=== PATIENT | female | born 1930 | race Caucasian/White ===

== ENCOUNTER 2016-02-14 10:21 | Outpatient (CLI) | payer MEDICARE, OTHER | END 2016-02-14 10:22 | disposition home or self-care (01) | DX: Z12.31 Encounter for screening mammogram for malignant neoplasm of breast (principal); Z80.3 Family history of malignant neoplasm of breast ==

== ENCOUNTER 2016-08-13 08:00 | Outpatient (CLI) | payer MEDICARE, OTHER | END 2016-08-13 08:01 | LOC: LAB.R 08:00 | PROVIDERS: ATTEND Physician Assistant Medical | DX: R10.31 Right lower quadrant pain (principal) | CPT/HCPCS: 87086 ==

== ENCOUNTER 2017-03-09 12:26 | Outpatient (CLI) | payer MEDICARE, OTHER ==
[2017-03-09 19:19] LABS: BASOPHILS % (AUTO) 0.5 %; EOSINOPHILS # (AUTO) 0.1 10^3/uL (0.0-0.7); EOSINOPHILS % (AUTO) 2.1 %; HGB - HEMOGLOBIN 12.5 g/dL (12.0-16.0); LYMPHOCYTES # (AUTO) 1.3 10^3/uL (1.5-3.5); LYMPHOCYTES % (AUTO) 24.9 %; MEAN CORPUSCULAR HEMOGLOBIN 29.2 pg (27.0-31.0); MEAN CORPUSCULAR HGB CONC 32.7 g/dL (32.0-36.0); MEAN CORPUSCULAR VOLUME 89.5 fL (81.0-99.0); MEAN PLATELET VOLUME 8.7 fL (7.9-10.8); MONOCYTES # (AUTO) 0.4 10^3/uL (0.0-1.0); MONOCYTES % (AUTO) 7.3 %; NEUTROPHILS # (AUTO) 3.5 10^3/uL (1.5-6.6); NEUTROPHILS % (AUTO) 65.2 %; PLT - PLATELET COUNT 241 10^3/uL (130-450); RED BLOOD COUNT 4.29 10^6/uL (4.20-5.40); RED CELL DISTRIBUTION WIDTH 13.1 % (12.0-15.0); WHITE BLOOD COUNT 5.4 x10^3/uL (4.8-10.8)
[2017-03-09 19:50] LABS: ALBUMIN 4.1 g/dL (3.2-5.5); ALBUMIN/GLOBULIN RATIO 1.5 (1.0-2.2); ALKALINE PHOSPHATASE 50 IU/L (42-121); ALT ALANINE AMINOTRANSFERASE 13 IU/L (10-60); AST ASPARTATE AMINOTRANSFERASE 20 IU/L (10-42); BILIRUBIN,TOTAL 0.5 mg/dL (0.2-1.0); BUN - BLOOD UREA NITROGEN 16 mg/dL (6-20); CALCIUM 10.2 mg/dL (8.5-10.3); CARBON DIOXIDE - CO2 26 mmol/L (21-32); CHLORIDE 103 mmol/L (101-111); CREATININE 0.7 mg/dL (0.4-1.0); GFR - MDRD 79 (>89); GLUCOSE 83 mg/dL (70-100); SODIUM 138 mmol/L (135-145); TOTAL PROTEIN 6.8 g/dL (6.7-8.2)
[2017-03-09 19:58] LABS: THYROID STIMULATING HORMONE 2.93 uIU/mL (0.34-5.60)
== END 2017-03-09 12:27 | disposition home or self-care (01) ==
LOC: LAB.WCP 12:26
PROVIDERS: ATTEND Physician Assistant Medical
DX: E21.0 Primary hyperparathyroidism (principal); R20.9 Unspecified disturbances of skin sensation; J30.9 Allergic rhinitis, unspecified
CPT/HCPCS: 36415; 80053; 83970; 84443; 85025

== ENCOUNTER 2017-03-15 08:44 | Outpatient (CLI) | payer MEDICARE, OTHER ==
[2017-03-15] MEDS ORDERED: GADOBUTROL 7.5 MMOL/7.5 ML VIAL ONE (08:45)
[2017-03-15] MEDS ORDERED: GADOBUTROL 7.5 MMOL/7.5 ML VIAL IVP ONE (09:24)
--- NOTE | 2017-03-15 10:52 | MRI Report ---
EXAM: MRI BRAIN WITHOUT AND WITH CONTRAST EXAM DATE: 03/15/2017 09:43 AM. CLINICAL HISTORY: Paresthesia. COMPARISON: None. TECHNIQUE: Multiplanar, multisequence T1-weighted and fluid-sensitive MR sequences of the brain were performed. Sequences optimized for White matter evaluation. Other: None. IV Contrast: Without and wit h 5.5 mL Gadavist. FINDINGS: Brain Volume: Normal for age. Parenchyma: No restricted diffusion to suggest acute or recent ischemic infarct. No evidence for intr acranial enhancing or space-occupying mass. No evidence for major dural venous sinus thrombus. No mid line shift or abnormal subdural fluid collection. Mild to moderate nonspecific multifocal patchy and nodular abnormal white matter T2 hyperintensity th at is especially prominent and confluent around the ventricles. There is also mild patchy abnormal T2 hyperintensity in the cerebellum and brainstem. No abnormal associated white matter enhancement. Ventricles/Cisterns: No hydrocephalus. No abnormal extra-axial fluid collection or hemorrhage. Sinuses: Left maxillary retention cyst. Minimal paranasal sinus mucosal thickening. Mild patchy nonsp ecific right mastoid fluid opacity. Bones: No focal pathologic appearing marrow signal changes in the skull or clivus. Other: The major arterial skull base flow voids are present. IMPRESSION: 1. No acute abnormality or enhancing mass. 2. Moderate nonspecific cerebral white matter disease, the usual gamut of White matter conditions may be considered including chronic microangiopathy. 3. Minimal mucosal thickening and patchy right mastoid nonspecific fluid opacity. [facility] Referring Provider Line: [phone] SITE ID: [id number]
== END 2017-03-15 08:45 | disposition home or self-care (01) ==
LOC: DI 08:44
PROVIDERS: ATTEND Physician Assistant Medical
DX: R20.9 Unspecified disturbances of skin sensation (principal); R90.82 White matter disease, unspecified
CPT/HCPCS: 70553; A9585

== ENCOUNTER 2017-04-08 10:33 | Outpatient (CLI) | payer MEDICARE, OTHER ==
--- NOTE | 2017-04-09 12:58 | Mammography Report ---
DIGITAL SCREENING MAMMOGRAM: 04/08/2017 CLINICAL INDICATION: An 86-year-old, for screening. COMPARISON: 02/2016, 01/2015, 12/2013, 11/2012, 11/2011, 11/2010, 11/2009. TECHNIQUE: Routine CC and MLO projections were obtained of the breasts. FINDINGS: The breasts again demonstrate scattered fibroglandular densities bilaterally. Coarse and punctate, typically benign calcifications are present. No suspicious masses, clustered microcalcifications, or regions of architectural distortion are identified. IMPRESSION: BENIGN FINDINGS. RECOMMENDATION: ROUTINE ANNUAL SCREENING UNLESS OTHERWISE CLINICALLY INDICATED. BIRADS CATEGORY 2-BENIGN FINDINGS. STANDARD QUALIFYING STATEMENTS: 1. This examination was reviewed with the aid of Computer-Aided Detection (CAD). 2. A negative or benign imaging report should not delay biopsy if clinically suspicious findings are present. Consider surgical consultation if warranted. More than 5% of cancers are not identified by imaging. 3. Dense breasts may obscure an underlying neoplasm. TD: 04/09/2017 12:57
== END 2017-04-08 10:34 | disposition home or self-care (01) ==
LOC: DI.N 10:33
PROVIDERS: ATTEND Physician Assistant Medical
DX: Z12.31 Encounter for screening mammogram for malignant neoplasm of breast (principal)
CPT/HCPCS: 77067

== ENCOUNTER 2017-09-14 13:05 | Outpatient (CLI) | payer MEDICARE, OTHER ==
--- NOTE | 2017-09-15 08:12 | DEXA Report ---
Procedure Date: 09/14/2017 Accession Number: [id number] / [id number] Procedure: DEX - Dexa Spine and/or Hip CPT Code: FULL RESULT: EXAM: Dexa Spine and/or Hip DATE: 09/14/2017 1:44 PM CLINICAL HISTORY: BONE DISEASE TECHNIQUE: Dual energy x-ray absorptiometry (DXA) was performed on a [employer]. Regions measured are the AP Spine, femoral neck, and if needed forearm. COMPARISON: None. In accordance with the International Society for Clinical Densitometry (ISCD) guidelines, data from previous exams may be reanalyzed using current recommendations and techniques. This is done to allow a more accurate basis for comparison with the current study. FINDINGS: The data for the lumbar spine is as follows: BMD (g/cm/cm) T-SCORE Z-SCORE REGION L1 0.827 -2.5 -0.2 L2 0.908 -2.4 -0.1 L3 0.926 -2.3 0.0 L4 0.929 -2.3 0.1 TOTAL 0.905 -2.3 0.0 NOTE: All evaluable vertebrae are used for classification The data for the hip is as follows: BMD (g/cm/cm) T-SCORE Z-SCORE REGION Neck 0.729 -2.2 0.5 TOTAL 0.798 -1.7 1.0 NOTE: The femoral neck or total proximal femur, whichever is lowest, is used for classification. DXA RESULTS SUMMARY: Spine SCAN DATE AGE BMD CHANGE VS CHANGE VS PREVIOUS PREVIOUS % 09[age]14[birth year]2017 [age] 0[age]905 0.028* 3.2* 09[birth year]18[birth year]2015 [age] 0[age]877 * Denotes significant change at the 95% confidence level. Denotes dissimilar scan types or analysis methods. DXA RESULTS SUMMARY: Hip SCAN DATE AGE BMD CHANGE VS CHANGE VS PREVIOUS PREVIOUS % 09[birth year]14[birth year]2017 [age] 0.798 0.039* 5.1* 09[birth year]18/2015 84.8 0.759 * Denotes significant change at the 95% confidence level. Denotes dissimilar scan types or analysis methods. IMPRESSION: THE WHO CLASSIFICATION BASED ON THE INTERNATIONAL REFERENCE STANDARD IS OSTEOPENIA. THE FRACTURE RISK IS INCREASED. RECOMMENDATION: Patients with diagnosis of osteoporosis or osteopenia should have regular bone mineral density assessment. For those eligible for Medicare, routine testing is allowed once every 2 years. Testing frequency can be increased for patients who have rapidly progressing disease or for those who are receiving medical therapy to restore bone mass. COMMENT: World Health Organization (WHO) definitions for osteoporosis and osteopenia: NORMAL BMD: T-score at -1.0 or higher, fracture risk is low OSTEOPENIA BMD: T-score between -1.0 and -2.5, fracture risk is increased. OSTEOPOROSIS BMD: T-score at -2.5 or lower, fracture risk is high. National Osteoporosis Foundation recommends: 1. Obtain adequate dietary calcium (at least 1200 mg per day) and vitamin D (400-800 international units per day). 2. Participate, as appropriate, in regular weightbearing and muscle-strengthening exercise. 3. Avoid tobacco use and reduce alcohol and caffeine intake. 4. For more detailed information see the website at www.NOF.org.
== END 2017-09-14 13:06 | disposition home or self-care (01) ==
LOC: DI 13:05
PROVIDERS: ATTEND Physician Assistant Medical
DX: M85.89 Other specified disorders of bone density and structure, multiple sites (principal)
CPT/HCPCS: 77080

== ENCOUNTER 2018-06-09 08:11 | Day surgery (SDC) | payer MEDICARE, OTHER ==
[~2018-06-09 08:11] MED LIST: BRIMONIDINE 0.2% OPHTH DROPS 5 ML ONE; BSS/LIDOCAINE/EPINEPHRINE 1 ML SYRINGE ONE; CYCLOPENTOLATE 1% OPHTH DROPS 2 ML ONE; CYCLOPENTOLATE 1% OPHTH DROPS 2 ML RIGHTEYE ONE; EPINEPHrine 1 MG/ML AMP ONE; KETOROLAC 0.45% OPHTH DROPS ONE; KETOROLAC 0.45% OPHTH DROPS RIGHTEYE ONE; PHENYLEPHRINE 2.5% OPHTH 2 ML DROPS ONE; PHENYLEPHRINE 2.5% OPHTH 2 ML DROPS RIGHTEYE ONE; PROPARACAINE 0.5% OPHTH DROPS 15 ML ONE; PROPARACAINE 0.5% OPHTH DROPS 15 ML RIGHTEYE ONE; TIMOLOL 0.5% OPHTH DROPS ONE; TRIAMCIN/MOXIFLOX OPHTHALMIC 0.6 ML VIAL IO ONE; VANCOMYCIN OPHTHALMI 8MG/0.8ML 8 MG/0.8 ML SYRINGE IO ONE
[2018-06-09] MEDS ORDERED: LACTATED RINGERS 500 ML IV ONE (08:23)
--- NOTE | 2018-06-09 08:26 | ANESTHESIA ---
Pre-Anesthesia VS, & Labs - Diagnosis R senile combined cataract - Procedure R extraction cataract with IOL Vital Signs: Last Vital Signs Temp 36.1 C L 06/09/18 08:27 Pulse 57 L 06/09/18 08:27 Resp 18 06/09/18 08:27 BP 156/70 H 06/09/18 08:27 Pulse Ox 99 06/09/18 08:27 Height 4 ft 11.25 in Body Mass Index 21.7 - NPO >8 hours - Is Patient ?: No Home Medications and Allergies Alendronate Sodium [Fosamax] 70 mg PO ONCE 11/26/14 Aspirin [Aspir 81] 81 mg PO DAILY 11/26/14 Cholecalciferol (Vitamin D3) [Vitamin D-3] 2,000 unit PO DAILY 11/26/14 Levetiracetam [Keppra] 500 mg PO BID 11/26/14 Vit C/E/Zn/Coppr/Lutein/Zeaxan [Preservision Areds 2 Softgel] 1 cap PO DAILY 11/26/14 Allergies/Adverse Reactions: Allergies Allergy/AdvReac Type Severity Reaction Status Date / Time levofloxacin [From Levaquin] AdvReac Intermediate Nausea Verified 11/26/14 15:25 NSAIDS (Non-Steroidal AdvReac Intermediate Nausea Verified 11/26/14 15:25 Anti-Inflamma phenazopyridine HCl * AdvReac Intermediate Nausea Verified 11/26/14 15:25 [From Pyridium] Anes History & Medical History - Anesthetic History Anesthesia Complications: reports: No previous complications Family history of Anesthesia Complications: Denies Family history of Malignant Hyperthermia: Denies - Medical History Cardiovascular: reports: None Pulmonary: reports: None Gastrointestinal: reports: Colon polyps, Other Urinary: reports: None Musculoskeletal: reports: Osteoarthritis, Osteoporosis Endocrine/Autoimmune: reports: Other Skin: reports: Other - Surgical History General: Colonoscopy Eyes Ears Nose Throat (EENT): Tonsil/Adenoidectomy Gynecologic: Hysterectomy Orthopedic: Hip replacement Exam General: Alert, Oriented x3, Cooperative Dental: WNL Mouth Openin Fingerbreadth Mallampati classification: II Thyromental Distance: 4-6 cm Respiratory: Lungs clear, Normal breath sounds, No respiratory distress Cardiovascular: Regular rate Neurological: Normal speech Mental/Cognitive Status: Alert/Oriented X3, Normal for patient Cognitive Status: Within normal limits Plan Anesthesia Type: MAC Consent for Procedure(s) Verified and Reviewed: Yes Code Status: Attempt Resuscitation ASA classification: 2-Mild systemic disease Is this case an emergency?: No
[2018-06-09] MEDS ORDERED: BRIMONIDINE 0.2% OPHTH DROPS 5 ML OPTH ONE (09:27)
[2018-06-09] MEDS ORDERED: CHONDR SULF/HYALURONATE SYRINGE IO ONE (09:28)
[2018-06-09] MEDS ORDERED: BSS/LIDOCAINE/EPINEPHRINE 1 ML SYRINGE IO ONE (09:28)
[2018-06-09] MEDS ORDERED: EPINEPHrine 1 MG/ML AMP IVP ONE (09:28)
[2018-06-09] MEDS ORDERED: TIMOLOL 0.5% OPHTH DROPS OPTH ONE (09:28)
[2018-06-09] MEDS ORDERED: TRIAMCIN/MOXIFLOX OPHTHALMIC 0.6 ML VIAL IO ONE (09:28)
[2018-06-09] MEDS ORDERED: VANCOMYCIN OPHTHALMI 8MG/0.8ML 8 MG/0.8 ML SYRINGE IO ONE (09:29)
[2018-06-09] MEDS ORDERED: MIDAZOLAM 2 MG/2 ML VIAL IVP ONE (09:29)
[2018-06-09 10:13] VITALS: BP 127/62
--- NOTE | 2018-06-09 11:55 | OPERATIVE REPORT ---
DATE OF SERVICE: 06/09/2018 Physician: Ankit Garner MD PREOPERATIVE DIAGNOSIS: Visually significant cataract, right eye. This was her first cataract surge ry. POSTOPERATIVE DIAGNOSIS: Visually significant cataract, right eye. This was her first cataract surg sil. DESCRIPTION OF PROCEDURE: Phacoemulsification with posterior chamber intraocular lens implant, right eye. SURGEON: Ankit Garner MD ANESTHESIA: Monitored anesthesia care. COMPLICATIONS: None. OPERATIVE INDICATIONS: This is an 87-year-old woman with progressive vision loss in the right eye du e to 2+ nuclear sclerotic and 3+ cortical cataract. Best corrected visual acuity was 20/40, with gla re to 20/630. Indications for surgery are overall decrease in vision, difficulty driving at night be cause of headlights from other vehicles and/or street lights, and difficulty tracking a golf ball. S he was consented at length concerning risks and benefits of cataract surgery, after which she express ed a desire to proceed with surgery. OPERATIVE PROCEDURE: The patient was taken into OR #3 and placed under monitored anesthesia care. A surgical timeout was conducted confirming the correct patient, correct procedure, and correct surgic al site. She was given topical anesthesia, then prepped and draped in the usual sterile fashion. Th e eye was entered at the 12 and 9 o'clock positions. Intracameral Shugarcaine was injected into the anterior chamber, followed by Viscoat. A continuous-tear curvilinear capsulorrhexis was performed. The nucleus was hydrodissected and phacoemulsified. The cortex was evacuated using automated infusio n and aspiration. Provisc was injected in the capsular bag, and a 19.5 diopter intraocular lens inse rted in the bag. Approximately 0.8 mL of a mixture of triamcinolone, moxifloxacin and vancomycin was injected subconjunctivally in the superior quadrant for infection and inflammation prophylaxis. I a nd A was used to evacuate the viscoelastic materials. The eye was inflated to physiologic pressure u sing balanced salt solution and found to be watertight. The patient was taken from the operating jonatan m in good condition and postoperative instructions. TD: 06/09/2018 09:49
== END 2018-06-09 08:12 | disposition home or self-care (01) ==
LOC: SDS 08:11
PROVIDERS: ATTEND Ophthalmology
PROC: 08RJ3JZ Replacement of Right Lens with Synthetic Substitute, Percutaneous Approach (ICD-10-PCS; principal; 2018-06-09 09:30)
DX: H25.811 Combined forms of age-related cataract, right eye (principal); M81.0 Age-related osteoporosis without current pathological fracture; M19.90 Unspecified osteoarthritis, unspecified site; Z96.649 Presence of unspecified artificial hip joint; Z79.82 Long term (current) use of aspirin
CPT/HCPCS: 66984; A9270; J3490; V2632

== ENCOUNTER 2018-06-16 17:00 | Outpatient (CLI) | payer MEDICARE, OTHER | END 2018-06-16 23:59 | disposition home or self-care (01) | LOC: LAB.R 17:00 | PROVIDERS: ATTEND Physician Assistant Medical | DX: R39.15 Urgency of urination (principal) | CPT/HCPCS: 87086 ==

== ENCOUNTER 2018-06-17 09:00 | Outpatient (CLI) | payer MEDICARE, OTHER ==
--- NOTE | 2018-06-20 08:44 | Mammography Report ---
Reason: SCREENING MAMMO Procedure Date: 06/17/2018 Accession Number: [id number] / [id number] Procedure: MGN - Screening Mammo Dig Bilat CPT Code: FULL RESULT: EXAM: Screening Mammo Dig Bilat DATE: 06/17/2018 9:22 AM CLINICAL HISTORY: Routine screening. No reported personal history of breast cancer. Family history breast cancer in sister at age 70 and daughter at age 50. TECHNIQUE: (B) - Bilateral CC and MLO views were obtained. COMPARISON: 04/08/2017 through 12/12/2013 PARENCHYMAL PATTERN: (A) - The breasts demonstrate scattered fibroglandular densities bilaterally. FINDINGS: Bilateral breasts There are no suspicious masses, calcifications, or areas of distortion. IMPRESSION: Negative examination. BI-RADS category 1. RECOMMENDATION: (ANNUAL) - Recommend routine annual screening mammography. BI-RADS CATEGORY: (1) - Negative. STANDARD QUALIFYING STATEMENTS: 1. This examination was not reviewed with the aid of Computer-Aided Detection (CAD). 2. A negative or benign imaging report should not preclude biopsy if clinically suspicious findings are present. 3. Dense breasts may obscure an underlying neoplasm. 4. This examination was reviewed without the aid of 3D breast imaging (tomosynthesis).
== END 2018-06-17 09:01 | disposition home or self-care (01) ==
LOC: DI.N 09:00
DX: Z12.31 Encounter for screening mammogram for malignant neoplasm of breast (principal); Z80.3 Family history of malignant neoplasm of breast
CPT/HCPCS: 77067

== ENCOUNTER 2018-06-20 08:00 | Outpatient (CLI) | payer MEDICARE, OTHER ==
[2018-06-20 19:35] LABS: BILIRUBIN,URINE NEGATIVE (NEGATIVE); GLUCOSE, URINE (UA) NEGATIVE (NEGATIVE); KETONES,URINE (UA) NEGATIVE (NEGATIVE); LEUKOCYTE ESTERASE, URINE NEGATIVE (NEGATIVE); NITRITE,URINE NEGATIVE (NEGATIVE); OCCULT BLOOD,URINE NEGATIVE (NEGATIVE); PH,URINE 6.5 PH (5.0-7.5); PROTEIN,URINE NEGATIVE (NEGATIVE); UROBILINOGEN,URINE 0.2 (NORMAL) E.U./dL (NORMAL)
[2018-06-20 19:37] LABS: CLARITY,URINE CLEAR (CLEAR)
== END 2018-06-20 23:59 | disposition home or self-care (01) ==
LOC: LAB.R 08:00
PROVIDERS: ATTEND Physician Assistant
DX: R39.15 Urgency of urination (principal)
CPT/HCPCS: 81001; 81003; 87086

== ENCOUNTER 2018-07-14 07:08 | Day surgery (SDC) | payer MEDICARE, OTHER ==
[~2018-07-14 07:08] MED LIST changes: -BRIMONIDINE 0.2% OPHTH DROPS 5 ML ONE; -BSS/LIDOCAINE/EPINEPHRINE 1 ML SYRINGE ONE; -CYCLOPENTOLATE 1% OPHTH DROPS 2 ML RIGHTEYE ONE; -EPINEPHrine 1 MG/ML AMP ONE; -KETOROLAC 0.45% OPHTH DROPS RIGHTEYE ONE; -PHENYLEPHRINE 2.5% OPHTH 2 ML DROPS RIGHTEYE ONE; -PROPARACAINE 0.5% OPHTH DROPS 15 ML RIGHTEYE ONE; -TIMOLOL 0.5% OPHTH DROPS ONE; -TRIAMCIN/MOXIFLOX OPHTHALMIC 0.6 ML VIAL IO ONE; -VANCOMYCIN OPHTHALMI 8MG/0.8ML 8 MG/0.8 ML SYRINGE IO ONE
[2018-07-14] MEDS ORDERED: BRIMONIDINE 0.2% OPHTH DROPS 5 ML ONE (07:12)
[2018-07-14] MEDS ORDERED: TRIAMCIN/MOXIFLOX OPHTHALMIC 0.6 ML VIAL IO ONE ×2 (07:12→08:34)
[2018-07-14] MEDS ORDERED: TIMOLOL 0.5% OPHTH DROPS ONE (07:12)
[2018-07-14] MEDS ORDERED: BSS/LIDOCAINE/EPINEPHRINE 1 ML SYRINGE ONE (07:13)
[2018-07-14] MEDS ORDERED: VANCOMYCIN OPHTHALMI 8MG/0.8ML 8 MG/0.8 ML SYRINGE IO ONE ×2 (07:13→08:34)
[2018-07-14] MEDS ORDERED: KETOROLAC 0.45% OPHTH DROPS LEFTEYE ONE (07:35)
[2018-07-14] MEDS ORDERED: CYCLOPENTOLATE 1% OPHTH DROPS 2 ML LEFTEYE ONE (07:35)
[2018-07-14] MEDS ORDERED: PHENYLEPHRINE 2.5% OPHTH 2 ML DROPS LEFTEYE ONE (07:35)
[2018-07-14] MEDS ORDERED: PROPARACAINE 0.5% OPHTH DROPS 15 ML LEFTEYE ONE (07:35)
[2018-07-14] MEDS ORDERED: LACTATED RINGERS 500 ML IV ONE (07:39)
--- NOTE | 2018-07-14 07:43 | ANESTHESIA ---
Pre-Anesthesia VS, & Labs - Diagnosis L senile combined cataract - Procedure L extraction cataract with IOL Vital Signs: Temp Pulse Resp BP Pulse Ox 36.3 C L 56 L 16 144/77 H 99 07/14/18 07:17 07/14/18 07:17 07/14/18 07:17 07/14/18 07:17 07/14/18 07:17 Height 4 ft 11 in Weight (kg) 53.2 kg Body Mass Index 21.7 - NPO >8 hours - Is Patient ?: No Home Medications and Allergies Aspirin [Aspir 81] 81 mg PO DAILY 11/26/14 Cholecalciferol (Vitamin D3) [Vitamin D-3] 2,000 unit PO DAILY 11/26/14 Levetiracetam [Keppra] 500 mg PO BID 11/26/14 Vit C/E/Zn/Coppr/Lutein/Zeaxan [Preservision Areds 2 Softgel] 1 cap PO DAILY 11/26/14 Allergies/Adverse Reactions: Allergies Allergy/AdvReac Type Severity Reaction Status Date / Time levofloxacin [From Levaquin] AdvReac Intermediate Nausea Verified 11/26/14 15:25 NSAIDS (Non-Steroidal AdvReac Intermediate Nausea Verified 11/26/14 15:25 Anti-Inflamma phenazopyridine HCl * AdvReac Intermediate Nausea Verified 11/26/14 15:25 [From Pyridium] Anes History & Medical History - Anesthetic History Anesthesia Complications: reports: No previous complications Family history of Anesthesia Complications: Denies Family history of Malignant Hyperthermia: Denies - Medical History Cardiovascular: reports: None Pulmonary: reports: None Gastrointestinal: reports: Colon polyps, Other Urinary: reports: None Musculoskeletal: reports: Osteoarthritis, Osteoporosis Endocrine/Autoimmune: reports: Other Skin: reports: Other - Surgical History General: Colonoscopy Eyes Ears Nose Throat (EENT): Cataracts, Tonsil/Adenoidectomy Gynecologic: Hysterectomy Orthopedic: Hip replacement Exam General: Alert, Oriented x3, Cooperative Dental: WNL Mouth Openin Fingerbreadth Neck Mobility: Normal Mallampati classification: II Thyromental Distance: 4-6 cm Respiratory: Lungs clear, Normal breath sounds Cardiovascular: Regular rate Neurological: Normal speech Mental/Cognitive Status: Alert/Oriented X3, Normal for patient Cognitive Status: Within normal limits Plan Anesthesia Type: MAC Consent for Procedure(s) Verified and Reviewed: Yes Code Status: Attempt Resuscitation ASA classification: 2-Mild systemic disease Is this case an emergency?: No
[2018-07-14] MEDS ORDERED: CHONDR SULF/HYALURONATE SYRINGE IO ONE (08:33)
[2018-07-14] MEDS ORDERED: BRIMONIDINE 0.2% OPHTH DROPS 5 ML OPTH ONE (08:33)
[2018-07-14] MEDS ORDERED: EPINEPHrine 1 MG/ML AMP IVP ONE (08:33)
[2018-07-14] MEDS ORDERED: TIMOLOL 0.5% OPHTH DROPS OPTH ONE (08:33)
[2018-07-14] MEDS ORDERED: BSS/LIDOCAINE/EPINEPHRINE 1 ML SYRINGE IO ONE (08:33)
[2018-07-14] MEDS ORDERED: MIDAZOLAM 2 MG/2 ML VIAL IVP ONE (08:43)
[2018-07-14 09:13] VITALS: BP 113/50
--- NOTE | 2018-07-14 10:35 | OPERATIVE REPORT ---
DATE OF SERVICE: 07/14/2018 Physician: Ankit Garner MD PREOPERATIVE DIAGNOSIS: Visually significant cataract, left eye. Cataract surgery was performed on the right eye on 06/09/2018. POSTOPERATIVE DIAGNOSIS: Visually significant cataract, left eye. Cataract surgery was performed on the right eye on 06/09/2018. PROCEDURE: Phacoemulsification with posterior chamber intraocular lens implant, left eye. SURGEON: Ankit Garner MD ANESTHESIA: Monitored anesthesia care. COMPLICATIONS: None. OPERATIVE INDICATIONS: This is an 87-year-old woman with progressive vision loss in the left eye due to 2+ nuclear sclerotic and 3+ cortical cataract. Best corrected visual acuity was 20/40 with glare to 20/400 in the left eye. Indications for surgery are overall decrease in vision and difficulty dr iving in low light or at night, difficulty driving at night because of headlights from other vehicles , and difficulty tracking a golf ball. She was consented at length concerning risks and benefits of cataract surgery, after which she expressed a desire to proceed with surgery. OPERATIVE PROCEDURE: The patient was taken into OR #3 and placed under monitored anesthesia care. A surgical timeout was conducted confirming the correct patient, correct procedure, and correct surgic al site. She was given topical anesthesia, and then prepped and draped in the usual sterile fashion. The eye was entered at the 6 and 3 o'clock positions. Intracameral Shugarcaine was injected into t he anterior chamber, followed by Viscoat. A continuous-tear curvilinear capsulorrhexis was performed . The nucleus was hydrodissected and phacoemulsified. The cortex was evacuated using automated infu francisco and aspiration. Provisc was injected into the capsular bag, and a 20.5 diopter intraocular lens inserted in the bag. Approximately 0.8 mL of a mixture of triamcinolone, moxifloxacin and vancomyci n was injected subconjunctivally in the superior quadrant for infection and inflammation prophylaxis. I and A was used to evacuate the viscoelastic material. The eye was inflated to physiologic pressu re using balanced salt solution and found to be watertight. The patient was taken from the operating room in good condition and given postoperative instructions. TD: 07/14/2018 08:54
== END 2018-07-14 07:09 | disposition home or self-care (01) ==
LOC: SDS 07:08
PROVIDERS: ATTEND Ophthalmology
PROC: 08RK3JZ Replacement of Left Lens with Synthetic Substitute, Percutaneous Approach (ICD-10-PCS; principal; 2018-07-14 10:30)
DX: H25.812 Combined forms of age-related cataract, left eye (principal); H35.3190 Nonexudative age-related macular degeneration, unspecified eye, stage unspecified; H35.373 Puckering of macula, bilateral; H35.363 Drusen (degenerative) of macula, bilateral; M19.90 Unspecified osteoarthritis, unspecified site; M81.0 Age-related osteoporosis without current pathological fracture; Z79.82 Long term (current) use of aspirin; Z96.641 Presence of right artificial hip joint
CPT/HCPCS: 66984; A9270; J3490; V2632

== ENCOUNTER 2018-08-15 13:33 | Outpatient (CLI) | payer MEDICARE, OTHER ==
[2018-08-15 18:46] LABS: ALBUMIN 4.1 g/dL (3.2-5.5); ALBUMIN/GLOBULIN RATIO 1.6 (1.0-2.2); ALKALINE PHOSPHATASE 61 IU/L (42-121); ALT ALANINE AMINOTRANSFERASE 14 IU/L (10-60); AST ASPARTATE AMINOTRANSFERASE 18 IU/L (10-42); BILIRUBIN,TOTAL 0.5 mg/dL (0.2-1.0); BUN - BLOOD UREA NITROGEN 23 mg/dL (6-20); CALCIUM 10.5 mg/dL (8.5-10.3); CARBON DIOXIDE - CO2 23 mmol/L (21-32); CHLORIDE 107 mmol/L (101-111); CHOL/HDL RATIO 3.4 (<4.4); CHOLESTEROL 216 mg/dL; CREATININE 0.8 mg/dL (0.4-1.0); GFR - MDRD 68 (>89); GLUCOSE 96 mg/dL (70-100); HDL CHOLESTEROL 63 mg/dL; LDL CHOLESTEROL,CALCULATED 127 mg/dL; SODIUM 141 mmol/L (135-145); TOTAL PROTEIN 6.7 g/dL (6.7-8.2); VLDL CHOLESTEROL 26 mg/dL
[2018-08-15 18:48] LABS: BASOPHILS % (AUTO) 0.9 %; EOSINOPHILS # (AUTO) 0.2 10^3/uL (0.0-0.7); EOSINOPHILS % (AUTO) 3.6 %; HGB - HEMOGLOBIN 12.1 g/dL (12.0-16.0); LYMPHOCYTES # (AUTO) 1.3 10^3/uL (1.5-3.5); LYMPHOCYTES % (AUTO) 27.4 %; MEAN CORPUSCULAR HEMOGLOBIN 29.2 pg (27.0-31.0); MEAN CORPUSCULAR HGB CONC 31.8 g/dL (32.0-36.0); MEAN CORPUSCULAR VOLUME 91.6 fL (81.0-99.0); MEAN PLATELET VOLUME 10.9 fL (7.9-10.8); MONOCYTES # (AUTO) 0.3 10^3/uL (0.0-1.0); MONOCYTES % (AUTO) 7.1 %; NEUTROPHILS # (AUTO) 2.9 10^3/uL (1.5-6.6); PLT - PLATELET COUNT 262 10^3/uL (130-450); RED BLOOD COUNT 4.15 10^6/uL (4.20-5.40); WHITE BLOOD COUNT 4.7 x10^3/uL (4.8-10.8)
[2018-08-15 18:53] LABS: THYROID STIMULATING HORMONE 1.53 uIU/mL (0.34-5.60)
== END 2018-08-15 23:59 | disposition home or self-care (01) ==
LOC: LAB.WCP 13:33
PROVIDERS: ATTEND Physician Assistant Medical
DX: R20.9 Unspecified disturbances of skin sensation (principal); M89.9 Disorder of bone, unspecified; R42 Dizziness and giddiness; E21.0 Primary hyperparathyroidism; M81.0 Age-related osteoporosis without current pathological fracture; R10.31 Right lower quadrant pain
CPT/HCPCS: 36415; 80053; 80061; 83721; 83970; 84443; 85025

== ENCOUNTER 2018-11-18 04:23 | Outpatient (CLI) | payer MEDICARE, OTHER | END 2018-11-18 04:24 | disposition critical access hospital (66) | LOC: EMS 04:23 | PROVIDERS: ATTEND Surgery | DX: R07.9 Chest pain, unspecified (principal) | CPT/HCPCS: A0425; A0427 ==

== ENCOUNTER 2018-11-18 05:32 | Emergency (ER) | payer MEDICARE, OTHER ==
[2018-11-18 05:53] LABS: BASOPHILS % (AUTO) 0.5 %; EOSINOPHILS # (AUTO) 0.1 10^3/uL (0.0-0.7); EOSINOPHILS % (AUTO) 1.7 %; HGB - HEMOGLOBIN 12.6 g/dL (12.0-16.0); LYMPHOCYTES # (AUTO) 1.3 10^3/uL (1.5-3.5); LYMPHOCYTES % (AUTO) 16.3 %; MEAN CORPUSCULAR HEMOGLOBIN 29.3 pg (27.0-31.0); MEAN CORPUSCULAR HGB CONC 31.9 g/dL (32.0-36.0); MEAN CORPUSCULAR VOLUME 91.9 fL (81.0-99.0); MONOCYTES # (AUTO) 0.8 10^3/uL (0.0-1.0); MONOCYTES % (AUTO) 10.4 %; NEUTROPHILS # (AUTO) 5.4 10^3/uL (1.5-6.6); NEUTROPHILS % (AUTO) 70.6 %; PLT - PLATELET COUNT 232 10^3/uL (130-450); RED CELL DISTRIBUTION WIDTH 12.4 % (12.0-15.0); WHITE BLOOD COUNT 7.7 x10^3/uL (4.8-10.8)
--- NOTE | 2018-11-18 05:53 | ED Physician Documentation ---
<Lacy Conley - Last Filed: 11/18/18 06:56> PD HPI CHEST PAIN - Stated complaint Stated Complaint: CP - Chief complaint Chief Complaint: Cardiac - History obtained from History obtained from: Patient - History of Present Illness Timing - onset: Last night Timing - onset during: Rest Timing - details: Gradual onset Pain level max: 8 Pain level now: 1 Quality: Dull Location: Substernal, Left chest Radiation: No: Jaw, Neck, Back, Abdominal, Left upper extremity, Right upper extremity, Other Improved by: Nitro, ASA Worsened by: Inspiration Associated symptoms: No: Shortness of air, Diaphoresis, Nausea, Vomiting, Feeling faint / dizzy, Palpitations, Cough Similar symptoms before: Has not had sx before Recently seen: Not recently seen - Additional information Additional information: This is an 88-year-old woman who lives alone complaints that she had chest pain last night before she went to bed at around 10:00. She was able to get to sleep but awoke at 3:30 in the morning to go to the bathroom and could not get back to sleep because of the dull pain in her substernal and left chest that was worse with deep breathing. She rated the pain at an 8 out of 10 and when she called 911 they told her to take 4 baby aspirin which she did in the ambulance gave her 3 sublingual nitros in route her pain is now down to 1 out of 10. She did not experience any dizziness, sweating, shortness of breath or palpitations with this. No nausea or vomiting. Has had no dysuria or peripheral edema. Denies history of heart disease, diabetes or DVT. She has had a partial seizure in the past and has been on Keppra since then. Review of Systems Constitutional: denies: Fever Eyes: reports: Other (Patient does wear glasses) Throat: denies: Sore throat Cardiac: reports: Chest pain / pressure. denies: Palpitations, Pedal edema Respiratory: denies: Dyspnea, Cough GI: denies: Nausea, Vomiting : denies: Dysuria Skin: denies: Rash Neurologic: denies: Generalized weakness, Focal weakness Endocrine: reports: Other (She is not diabetic) PD PAST MEDICAL HISTORY - Past Medical History Past Medical History: Yes Cardiovascular: None Respiratory: None Neuro: Seizure disorder Endocrine/Autoimmune: Other GI: Colon polyps, Other : None HEENT: Other Psych: None Musculoskeletal: Osteoarthritis, Osteoporosis Derm: Other - Past Surgical History Past Surgical History: Yes General: Colonoscopy Ortho: Hip replacement /MEDICAL SCRIBE: Hysterectomy HEENT: Cataracts, Tonsil/Adenoidectomy - Present Medications Home Medications: Ambulatory Orders Medication Instructions Recorded Confirmed Aspirin [Aspir 81] 81 mg PO DAILY 11/26/14 11/18/18 Cholecalciferol (Vitamin D3) 2,000 unit PO DAILY 11/26/14 11/18/18 [Vitamin D-3] Levetiracetam [Keppra] 500 mg PO BID 11/26/14 11/18/18 Vit C/E/Zn/Coppr/Lutein/Zeaxan 1 cap PO DAILY 11/26/14 11/18/18 [Preservision Areds 2 Softgel] - Allergies Allergies/Adverse Reactions: Allergies Allergy/AdvReac Type Severity Reaction Status Date / Time levofloxacin [From Levaquin] AdvReac Intermediate Nausea Verified 11/18/18 05:51 NSAIDS (Non-Steroidal AdvReac Intermediate Nausea Verified 11/18/18 05:51 Anti-Inflamma phenazopyridine HCl * AdvReac Intermediate Nausea Verified 11/18/18 05:51 [From Pyridium] - Social History Does the pt smoke?: No Smoking Status: Never smoker Does the pt drink ETOH?: Yes Does the pt have substance abuse?: No - Immunizations Immunizations are current?: Yes - POLST Patient has POLST: No PD ED PE NORMAL - Vitals Vital signs reviewed: Yes - General General: Alert and oriented X 3, No acute distress, Well developed/nourished - HEENT HEENT: Atraumatic, PERRL, Moist mucous membranes - Neck Neck: Supple, no meningeal sign, No adenopathy, Thyroid normal - Cardiac Cardiac: RRR, No murmur, No rub, Strong equal pulses - Respiratory Respiratory: No respiratory distress, Clear bilaterally - Abdomen Abdomen: Normal bowel sounds, Soft, Non tender, Non distended - Derm Derm: Normal color, Warm and dry, No rash - Extremities Extremities: No edema - Neuro Neuro: Alert and oriented X 3, assorter 2-12 intact, No motor deficit, No sensory deficit, Normal speech - Psych Psych: Normal mood, Normal affect Results - EKG (time done) 0540 Rate: Rate (enter#) (75) Rhythm: NSR Intervals: Normal MA, Other (Narrow QRS) Ischemia: Normal ST segments, Other (Diffusely flat T waves) - Rads (name of study) CXR Radiology: EMP read contemporaneously, See rad report (Neg acute) PD MEDICAL DECISION MAKING - ED course Complexity details: reviewed results, re-evaluated patient, d/w patient ED course: Patient had only very minimal discomfort by the time she arrived by ambulance. Her initial troponin is normal. Chest x-ray is clear and her EKG does not show acute ischemia. Plan to observe and recheck troponin in 3 hours. She was allowed to have something to eat. On reevaluation she said that the pain was essentially gone. Care turned over to Dr Awan at 0700. Departure - Departure Disposition: 01 Home, Self Care Clinical Impression: Atypical chest pain Condition: Stable Instructions: ED Chest Pain Atypical Unkn Cause Follow-Up: Amna Elena PA-C [Primary Care Provider] - Within 1 week Comments: Your labs, ekgs, chest xrays and heart enzymes today were all normal. There is no evidence that you are having a heart attack. If your symptoms recur or are severe however you should return to the ED. Otherwise please follow up with your PCP to recheck your symptoms and potentiall y to schedule a stress test to test your heart while exercising. <Adelina Awan - Last Filed: 11/18/18 09:35> Results - Vitals Vitals: Vital Signs - 24 hr 11/18/18 11/18/18 11/18/18 05:33 05:43 05:48 Temperature 36.8 C Heart Rate 75 70 Respiratory 18 26 H Rate Blood Pressure 120/71 117/69 Blood Pressure 120/71 [Left] O2 Saturation 99 97 11/18/18 11/18/18 11/18/18 06:18 07:17 09:00 Temperature Heart Rate 69 69 72 Respiratory 19 18 12 Rate Blood Pressure 106/63 106/69 128/63 Blood Pressure [Left] O2 Saturation 98 99 97 Oxygen O2 Source Room air - EKG (time done) 08:39 Rate: Rate (enter#) (62) Rhythm: NSR [place]: Normal Intervals: Normal MA, QRS normal QRS: Normal Ischemia: Normal ST segments Other comments: Other comments (no STEMI) Compare to prior EKG: Unchanged from prior EKG - Labs Labs: Laboratory Tests 11/18/18 11/18/18 11/18/18 05:42 05:42 05:42 WBC 7.7 RBC 4.30 Hgb 12.6 Hct 39.5 MCV 91.9 MCH 29.3 MCHC 31.9 L RDW 12.4 Plt Count 232 MPV 10.0 Neut # (Auto) 5.4 Lymph # (Auto) 1.3 L [place] # (Auto) 0.8 Eos # (Auto) 0.1 Baso # (Auto) 0.0 Absolute Nucleated RBC 0.00 Nucleated RBC % 0.0 Sodium 140 Potassium 3.8 Chloride 104 Carbon Dioxide 25 Anion Gap 11.0 BUN 20 Creatinine 0.8 Estimated GFR (MDRD) 68 L Glucose 97 Calcium 9.9 Total Bilirubin 0.7 AST 18 ALT 13 Alkaline Phosphatase 57 Troponin I High Sens 4.1 Total Protein 6.5 L Albumin 3.8 Globulin 2.7 Albumin/Globulin Ratio 1.4 Lipase 49 11/18/18 08:42 WBC RBC Hgb Hct MCV MCH MCHC RDW Plt Count MPV Neut # (Auto) Lymph # (Auto) [place] # (Auto) Eos # (Auto) Baso # (Auto) Absolute Nucleated RBC Nucleated RBC % Sodium Potassium Chloride Carbon Dioxide Anion Gap BUN Creatinine Estimated GFR (MDRD) Glucose Calcium Total Bilirubin AST ALT Alkaline Phosphatase Troponin I High Sens 4.1 Total Protein Albumin Globulin Albumin/Globulin Ratio Lipase PD MEDICAL DECISION MAKING - ED course ED course: I received patient signout from Dr. Goncalves, he repeat EKG shows normal sinus rhythm and no STEMI or ischemic changes. Her repeat troponin is normal. I discussed with Miss Hooper the results of her labs and imaging and ekgs. I also instructed her to return if worsening chest pain or sob develop. She agrees to followup as an outpt with her PCP. Departure - Departure Record reviewed to determine appropriate education?: Yes
[2018-11-18 06:03] LABS: ALBUMIN 3.8 g/dL (3.2-5.5); ALBUMIN/GLOBULIN RATIO 1.4 (1.0-2.2); BILIRUBIN,TOTAL 0.7 mg/dL (0.2-1.0); CALCIUM 9.9 mg/dL (8.5-10.3); CREATININE 0.8 mg/dL (0.4-1.0); TOTAL PROTEIN 6.5 g/dL (6.7-8.2)
--- NOTE | 2018-11-18 06:19 | XRAY Report ---
Reason: Chest Pain Procedure Date: 11/18/2018 Accession Number: [id number] / [id number] Procedure: XR - Chest 1 View X-Ray CPT Code: 16804 FULL RESULT: EXAM: CHEST RADIOGRAPHY EXAM DATE: 11/18/2018 06:00 AM. CLINICAL HISTORY: Chest pain. COMPARISON: None. TECHNIQUE: 1 view. FINDINGS: Lungs/Pleura: No focal opacities evident. No pulmonary edema. No pleural effusion. No pneumothorax. Mediastinum: Upper normal cardiac silhouette size. No mediastinal widening. Other: Osseous structures are mildly osteopenic with degenerative changes evident. Osseous structures are grossly intact. IMPRESSION: No evidence of acute cardiopulmonary process. RADIA
[2018-11-18 09:25] VITALS: BP 128/63
== END 2018-11-18 09:42 | disposition home or self-care (01) ==
LOC: EDUNIT# → ED 05:32
DX: R07.89 Other chest pain (principal); Z79.82 Long term (current) use of aspirin; G40.909 Epilepsy, unspecified, not intractable, without status epilepticus
CPT/HCPCS: 36415; 71045; 80053; 83690; 84484; 85025; 93005; 99284

== ENCOUNTER 2018-12-05 10:07 | Outpatient (CLI) | payer MEDICARE, OTHER | END 2018-12-05 10:08 | disposition home or self-care (01) | LOC: DI 10:07 | PROVIDERS: ATTEND Physician Assistant Medical | DX: R07.9 Chest pain, unspecified (principal); I08.1 Rheumatic disorders of both mitral and tricuspid valves | CPT/HCPCS: 93306 ==

== ENCOUNTER 2019-04-20 13:50 | Outpatient (CLI) | payer MEDICARE, OTHER | END 2019-04-20 23:59 | disposition home or self-care (01) | LOC: LAB.R 13:50 | PROVIDERS: ATTEND Physician Assistant Medical | DX: J06.9 Acute upper respiratory infection, unspecified (principal) | CPT/HCPCS: 87275; 87276 ==

== ENCOUNTER 2019-06-19 08:00 | Outpatient (CLI) | payer MEDICARE, OTHER | END 2019-06-19 23:59 | disposition home or self-care (01) | LOC: LAB.R 08:00 | PROVIDERS: ATTEND Physician Assistant Medical | DX: R30.0 Dysuria (principal) | CPT/HCPCS: 87086; 87181 ==

== ENCOUNTER 2019-06-29 10:14 | Outpatient (CLI) | payer MEDICARE, OTHER | END 2019-06-29 10:15 | disposition home or self-care (01) | LOC: DI 10:14 | PROVIDERS: ATTEND Internal Medicine Cardiovascular Disease | DX: I34.0 Nonrheumatic mitral (valve) insufficiency (principal); I51.7 Cardiomegaly; Z95.0 Presence of cardiac pacemaker | CPT/HCPCS: 93306 ==

== ENCOUNTER 2019-07-26 07:00 | Outpatient (CLI) | payer MEDICARE, OTHER | END 2019-07-26 23:59 | disposition home or self-care (01) | LOC: LAB.R 07:00 | PROVIDERS: ATTEND Physician Assistant Medical | DX: N39.0 Urinary tract infection, site not specified (principal) | CPT/HCPCS: 87086 ==

== ENCOUNTER 2019-10-20 10:11 | Emergency (ER) | payer MEDICARE, OTHER ==
[2019-10-20 10:34] LABS: BASOPHILS % (AUTO) 0.5 %; EOSINOPHILS # (AUTO) 0.1 10^3/uL (0.0-0.7); EOSINOPHILS % (AUTO) 1.6 %; HGB - HEMOGLOBIN 12.5 g/dL (12.0-16.0); LYMPHOCYTES % (AUTO) 15.5 %; MEAN CORPUSCULAR HEMOGLOBIN 30.5 pg (27.0-31.0); MEAN CORPUSCULAR HGB CONC 33.1 g/dL (32.0-36.0); MEAN CORPUSCULAR VOLUME 92.2 fL (81.0-99.0); MEAN PLATELET VOLUME 9.8 fL (7.9-10.8); MONOCYTES # (AUTO) 0.8 10^3/uL (0.0-1.0); MONOCYTES % (AUTO) 13.2 %; NEUTROPHILS # (AUTO) 4.3 10^3/uL (1.5-6.6); NEUTROPHILS % (AUTO) 68.9 %; PLT - PLATELET COUNT 199 10^3/uL (130-450); RED CELL DISTRIBUTION WIDTH 12.7 % (12.0-15.0); WHITE BLOOD COUNT 6.2 x10^3/uL (4.8-10.8)
[2019-10-20 10:46] LABS: ALBUMIN 3.8 g/dL (3.2-5.5); ALBUMIN/GLOBULIN RATIO 1.4 (1.0-2.2); BILIRUBIN,TOTAL 0.8 mg/dL (0.2-1.0); CALCIUM 9.5 mg/dL (8.5-10.3); CREATININE 0.9 mg/dL (0.4-1.0); TOTAL PROTEIN 6.5 g/dL (6.7-8.2)
[2019-10-20 10:48] LABS: BILIRUBIN,URINE NEGATIVE (NEGATIVE); GLUCOSE, URINE (UA) NEGATIVE (NEGATIVE); KETONES,URINE (UA) NEGATIVE (NEGATIVE); LEUKOCYTE ESTERASE, URINE SMALL (NEGATIVE); NITRITE,URINE NEGATIVE (NEGATIVE); OCCULT BLOOD,URINE TRACE-INTA (NEGATIVE); PH,URINE 6.5 PH (5.0-7.5); PROTEIN,URINE NEGATIVE (NEGATIVE); UROBILINOGEN,URINE 0.2 (NORMAL) E.U./dL (NORMAL)
[2019-10-20 10:56] LABS: CLARITY,URINE CLEAR (CLEAR)
[2019-10-20] MEDS ORDERED: SODIUM CHLORIDE 0.9% 1,000 ML IV STA (11:00)
--- NOTE | 2019-10-20 11:03 | ED Physician Documentation ---
PD HPI NVD - Stated complaint Stated Complaint: DIARRHEA - Chief complaint Chief Complaint: Abd Pain - History obtained from History obtained from: Patient - History of Present Illness Timing - onset: How many days ago (3) Timing - duration: Days (3) Timing - details: Abrupt onset, Still present Associated symptoms: Abdominal pain, Other (diarrhea) Contributing factors: No: Sick contact, Bad food, Recent antibiotics, Alcohol use, Diabetes Improved by: Other (time) Similar symptoms before: Has not had sx before Recently seen: Not recently seen - Additonal information Additional information: Previously well 88-year-old female has developed acute diarrhea 3 days ago and she had diarrhea for 2 days 6-7 times per day. She feels fatigued and was asked by the calling nurse to come to the emergency department for evaluation. She denies any blood in the stool she denies any mucus in the stool and she denies any prior episodes. She does not eat unprocessed eggs and cooks her chicken well. She has some swelling to her abdomen some general dull pain that remains but her diarrhea is now resolved. She has not had fever with this and does not otherwise feel ill. Review of Systems Constitutional: reports: Fatigue. denies: Fever, Chills Eyes: denies: Decreased vision Ears: denies: Ear pain Nose: denies: Rhinorrhea / runny nose, Congestion Throat: denies: Sore throat Cardiac: denies: Chest pain / pressure, Palpitations Respiratory: denies: Dyspnea, Cough GI: reports: Abdominal Pain, Diarrhea. denies: Nausea, Vomiting : reports: Frequency. denies: Dysuria Skin: denies: Rash Musculoskeletal: denies: Neck pain, Back pain, Extremity pain Neurologic: denies: Generalized weakness, Focal weakness, Numbness PD PAST MEDICAL HISTORY - Past Medical History Past Medical History: No Cardiovascular: None Respiratory: None Neuro: Seizure disorder Endocrine/Autoimmune: Other GI: Colon polyps, Other : None HEENT: Other Psych: None Musculoskeletal: Osteoarthritis, Osteoporosis Derm: Other - Past Surgical History Past Surgical History: Yes General: Colonoscopy Ortho: Hip replacement /ACCESSIONER: Hysterectomy Cardiovascular: Pacemaker HEENT: Cataracts, Tonsil/Adenoidectomy - Present Medications Home Medications: Ambulatory Orders Medication Instructions Recorded Confirmed Aspirin [Aspir 81] 81 mg PO DAILY 11/26/14 11/18/18 Cholecalciferol (Vitamin D3) 2,000 unit PO DAILY 11/26/14 11/18/18 [Vitamin D-3] Levetiracetam [Keppra] 500 mg PO BID 11/26/14 11/18/18 Vit C/E/Zn/Coppr/Lutein/Zeaxan 1 cap PO DAILY 11/26/14 11/18/18 [Preservision Areds 2 Softgel] - Allergies Allergies/Adverse Reactions: Allergies Allergy/AdvReac Type Severity Reaction Status Date / Time levofloxacin [From Levaquin] AdvReac Intermediate Nausea Verified 11/18/18 05:51 NSAIDS (Non-Steroidal AdvReac Intermediate Nausea Verified 11/18/18 05:51 Anti-Inflamma phenazopyridine HCl * AdvReac Intermediate Nausea Verified 11/18/18 05:51 [From Pyridium] - Social History Does the pt smoke?: No Smoking Status: Never smoker Does the pt drink ETOH?: Yes ETOH Use: Wine Does the pt have substance abuse?: No - Immunizations Immunizations are current?: Yes - POLST Patient has POLST: No PD ED PE NORMAL - Vitals Vital signs reviewed: Yes (hypertensive ) - General General: Alert and oriented X 3, No acute distress, Well developed/nourished - HEENT HEENT: Atraumatic, PERRL, EOMI - Neck Neck: Supple, no meningeal sign - Cardiac Cardiac: RRR, No murmur - Respiratory Respiratory: No respiratory distress, Clear bilaterally - Abdomen Abdomen: Normal bowel sounds, Soft, Non tender, No organomegaly, Other (mild distetion with minimal tenderness that is non-specific) - Back Back: No CVA TTP, No spinal TTP - Derm Derm: Normal color, Warm and dry, No rash - Extremities Extremities: No deformity, No edema - Neuro Neuro: Alert and oriented X 3, pharmacist intern 2-12 intact, No motor deficit, No sensory deficit, Normal speech Eye Opening: Spontaneous Motor: Obeys Commands Verbal: Oriented GCS Score: 15 - Psych Psych: Normal mood, Normal affect Results - Vitals Vitals: Vital Signs - 24 hr 10/20/19 10/20/19 10:14 10:18 Temperature 97.9 C H Heart Rate 60 61 Respiratory 18 18 Rate Blood Pressure 147/60 H 138/57 H O2 Saturation 97 96 Oxygen O2 Source Room air - Labs Labs: Laboratory Tests 10/20/19 10/20/19 10/20/19 10:29 10:29 10:40 WBC 6.2 RBC 4.10 L Hgb 12.5 Hct 37.8 MCV 92.2 MCH 30.5 MCHC 33.1 RDW 12.7 Plt Count 199 MPV 9.8 Neut # (Auto) 4.3 Lymph # (Auto) 1.0 L [place] # (Auto) 0.8 Eos # (Auto) 0.1 Baso # (Auto) 0.0 Absolute Nucleated RBC 0.00 Nucleated RBC % 0.0 Sodium 136 Potassium 3.9 Chloride 102 Carbon Dioxide 27 Anion Gap 7.0 BUN 13 Creatinine 0.9 Estimated GFR (MDRD) 59 L Glucose 92 Calcium 9.5 Total Bilirubin 0.8 AST 16 ALT 13 Alkaline Phosphatase 70 Total Protein 6.5 L Albumin 3.8 Globulin 2.7 Albumin/Globulin Ratio 1.4 Lipase 29 Urine Color YELLOW Urine Clarity CLEAR Urine pH 6.5 Ur Specific [place] <=1.005 Urine Protein NEGATIVE Urine Glucose (UA) NEGATIVE Urine Ketones NEGATIVE Urine Occult Blood TRACE-INTA Urine Nitrite NEGATIVE Urine Bilirubin NEGATIVE Urine Urobilinogen 0.2 (NORMAL) Ur Leukocyte Esterase SMALL H Urine RBC 0-5 Urine WBC 0-3 Ur Squamous Epith Cells RARE Squamous Urine Bacteria Few Ur Microscopic Review INDICATED Urine Culture Comments INDICATED Procedures - IVC sono (time) 1100 Bedside IVC sono: IVC measures (cm) (1.12), IVC collapsed c insp (cm) (complete), Dehydration (est 1 liter deficit) PD MEDICAL DECISION MAKING - ED course Complexity details: reviewed results, re-evaluated patient, considered differential, d/w patient ED course: 88-year-old female previously well with history of a pacemaker and a left prosthetic hip has developed some diarrhea that appears self-limiting her electrolytes are in order she is found to be a bit dehydrated on interrogation the inferior vena cava and she is administered a liter of saline. Departure - Departure Disposition: 01 Home, Self Care Clinical Impression: Dehydration Diarrhea Qualifiers: Diarrhea type: unspecified type Qualified Code(s): R19.7 - Diarrhea, unspecified Condition: Stable Instructions: ED Dehydration, ED Diet Vomiting Diarrhea Follow-Up: Amna Elena PA-C [Primary Care Provider] - Comments: Today we found you were dehydrated and you have been administered fluids. Your electrolytes are all in order as are your blood counts. The expectation is he will not have further problems related to this brief illness.
[2019-10-20 11:06] LABS: BACTERIA,URINE Few /HPF (None Seen); RBC,URINE 0-5 /HPF (0-5); SQUAMOUS EPITHELIAL CELL,UR RARE Squamous (<= Few)
[2019-10-20 11:41] VITALS: BP 126/60
== END 2019-10-20 11:58 | disposition home or self-care (01) ==
LOC: ED 10:11
DX: E86.0 Dehydration (principal); R19.7 Diarrhea, unspecified; M81.0 Age-related osteoporosis without current pathological fracture; Z95.0 Presence of cardiac pacemaker; Z96.642 Presence of left artificial hip joint; Z79.82 Long term (current) use of aspirin
CPT/HCPCS: 36415; 80053; 81001; 81003; 83690; 85025; 87086; 99282; 99283

== ENCOUNTER 2020-06-06 00:03 | Outpatient (CLI) | payer MEDICARE, OTHER | END 2020-06-06 00:04 | disposition short-term general hospital (02) | LOC: EMS 00:03 | DX: R22.0 Localized swelling, mass and lump, head (principal); R47.81 Slurred speech; R25.1 Tremor, unspecified; R51.9 Headache, unspecified; Z96.642 Presence of left artificial hip joint | CPT/HCPCS: A0425; A0429 ==

== ENCOUNTER 2020-06-21 14:18 | Outpatient (CLI) | payer MEDICARE, OTHER ==
[2020-06-21] MEDS ORDERED: IOPAMIDOL-300 100 ML VIAL ONE (14:23)
[2020-06-21] MEDS ORDERED: IOPAMIDOL-300 50 ML VIAL ONE (14:23)
--- NOTE | 2020-06-21 16:32 | CT Report ---
PROCEDURE: Abdomen/Pelvis W INDICATIONS: RLQ ABD PAIN CONTRAST: IV CONTRAST: Isovue 300 ml: 100 PO CONTRAST: Isovue 300 ml50 TECHNIQUE: After the administration of intravenous and oral contrast, 5 mm thick sections acquired from the diap hragms to the symphysis. 5 mm thick coronal and sagittal reformats were acquired. For radiation dos e reduction, the following was used: automated exposure control, adjustment of mA and/or kV accordin g to patient size. COMPARISON: None. FINDINGS: Image quality: There is extensive metallic streak artifact from patient's bilateral hip prostheses li miting evaluation in the pelvis. ABDOMEN: Lung bases: There is dependent atelectasis bilaterally. Heart size is enlarged. There are pacemaker l hadley partially visualized within the right atrium and right ventricle. Solid organs: Evaluation of the liver demonstrates no focal hepatic lesions. Gallbladder appears with in normal limits without calcified gallstones. Biliary system is non dilated. The spleen is normal i n size. Pancreas enhances normally without peripancreatic fat stranding or fluid collections. There i s nodular thickening of the left adrenal gland measuring up to 1.0 x 1.8 cm. Kidneys demonstrate no h ydronephrosis. Peritoneum and bowel: Small and large loops demonstrate normal wall thickness and caliber. The append ix is not discretely identified and may be surgically absent. No pericecal inflammatory changes to galvin ggest appendicitis. There is colonic diverticulosis without acute diverticulitis. No free fluid or ai r. Nodes and vessels: No retroperitoneal or mesenteric adenopathy by size criteria. Aorta and inferior vena cava are normal in size. Miscellaneous: No ventral hernias. PELVIS: Genitourinary: Bladder wall thickness is normal. Evaluation of the bladder is limited by streak jeanne fact. Miscellaneous: No inguinal hernias or adenopathy. No discrete soft tissue fluid collections are iden tified. Bones: No suspicious bony lesions. No vertebral body compression fractures. IMPRESSION: 1. Slightly limited study demonstrates no definite acute intra-abdominal abnormality. Specifically, n o pericecal inflammatory changes to suggest appendicitis. 2. Indeterminate left adrenal nodule. Further evaluation may be obtained with an adrenal protocol MRI or CT. Attempted to contact Dr. Elena for requested stat report. However, the provider was not available on the provided phone number. Reviewed by: Carlitos Benz MD on 06/21/2020 4:31 PM PDT Approved by: Carlitos Benz MD on 06/21/2020 4:31 PM PDT Station ID: [id number]
[2020-06-21] MEDS ORDERED: IOPAMIDOL-300 100 ML VIAL IVP ONE (16:42)
[2020-06-21] MEDS ORDERED: IOPAMIDOL-300 50 ML VIAL PO ONE (16:46)
== END 2020-06-21 14:19 | disposition home or self-care (01) ==
LOC: DI 14:18
PROVIDERS: ATTEND Physician Assistant Medical
DX: E27.8 Other specified disorders of adrenal gland (principal)
CPT/HCPCS: 74177; Q9967

== ENCOUNTER 2020-07-25 12:30 | Outpatient (CLI) | payer MEDICARE, OTHER ==
--- NOTE | 2020-07-25 13:34 | Ultrasound Report ---
PROCEDURE: Duplex Ext Veins Left INDICATIONS: LEFT LOWER LEG EDEMA TECHNIQUE: Real-time imaging, as well as color and pulse Doppler interrogation, were performed of the lower extr emity deep veins from the inguinal ligament to the popliteal fossa. COMPARISON: None. FINDINGS: The deep veins are normally compressible, and free of intraluminal thrombus. Color and pu lse Doppler demonstrate normal phasic intraluminal flow. There is normal augmentation response to di stal compression maneuver. Incidental 4.1 x 1.5 cm popliteal cyst. IMPRESSION: No evidence of deep venous thrombosis, left lower extremity Incidental popliteal cyst Reviewed by: Eber Regan MD on 07/25/2020 12:33 PM RADHA Approved by: Eber Regan MD on 07/25/2020 12:33 PM AKRUDY Station ID: [id number]
== END 2020-07-25 12:31 | disposition home or self-care (01) ==
LOC: DI 12:30
PROVIDERS: ATTEND Physician Assistant Medical
DX: R60.0 Localized edema (principal)

== ENCOUNTER 2020-07-25 12:33 | Outpatient (CLI) | payer MEDICARE, OTHER ==
--- NOTE | 2020-07-25 14:03 | XRAY Report ---
PROCEDURE: Ankle 3 View LT INDICATIONS: LEFT LOWER LEG EDEMA TECHNIQUE: 3 views of the ankle were acquired. COMPARISON: None FINDINGS: Bones: No fractures or dislocations. Ankle mortise is normally aligned. No suspicious bony lesions . No significant degenerative changes are present. No erosions. Soft tissues: No tibiotalar joint effusion. Achilles tendon appears normal. IMPRESSION: No significant degenerative changes. No acute abnormality. Reviewed by: Devante Trejo on 07/25/2020 2:02 PM PDT Approved by: Devante Trejo on 07/25/2020 2:02 PM PDT Station ID: [id number]
== END 2020-07-25 12:34 | disposition home or self-care (01) ==
LOC: DI 12:33
PROVIDERS: ATTEND Physician Assistant Medical
DX: R60.0 Localized edema (principal)

== ENCOUNTER 2020-08-05 08:00 | Outpatient (CLI) | payer MEDICARE, OTHER | END 2020-08-05 23:59 | disposition home or self-care (01) | LOC: LAB.N 08:00 | PROVIDERS: ATTEND Family Medicine | DX: M54.5 Low back pain (principal); N39.0 Urinary tract infection, site not specified | CPT/HCPCS: 87086 ==

== ENCOUNTER 2020-08-08 09:36 | Outpatient (CLI) | payer MEDICARE, OTHER ==
--- NOTE | 2020-08-08 17:00 | XRAY Report ---
PROCEDURE: Lumbar Spine 2 View INDICATIONS: ACUTE LOW BACK PAIN TECHNIQUE: 3 views of the lumbar spine were acquired. COMPARISON: None. FINDINGS: Bones: 5 [id number] vertebrae are present. There is minimal retrolisthesis at T12-L1 and L1-L2 . There is mild multilevel degenerative disc disease throughout the lumbar spine. Mild endplate scler osis is noted at L5-S1. There is also mild facet arthropathy in the lower lumbar spine. No vertebral body compression fractures. No suspicious bony lesions. Soft tissues: Overlying bowel gas pattern is normal. There are scattered vascular calcifications. IMPRESSION: 1. Minimal retrolisthesis in the upper lumbar spine. 2. 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 3. Mild facet arthropathy in the lower lumbar spine. Reviewed by: Carlitos Benz MD on 08/08/2020 4:58 PM PDT Approved by: Carlitos Benz MD on 08/08/2020 4:58 PM PDT Station ID: [id number]
== END 2020-08-08 23:59 | disposition home or self-care (01) ==
LOC: DI.N 09:36
PROVIDERS: ATTEND Physician Assistant Medical
DX: M43.16 Spondylolisthesis, lumbar region (principal); M47.816 Spondylosis without myelopathy or radiculopathy, lumbar region; M47.817 Spondylosis without myelopathy or radiculopathy, lumbosacral region; M51.36 Other intervertebral disc degeneration, lumbar region

== ENCOUNTER 2020-08-26 07:58 | Outpatient (CLI) | payer MEDICARE, OTHER | END 2020-08-26 23:59 | disposition home or self-care (01) | LOC: LAB.N 07:58 | PROVIDERS: ATTEND Physician Assistant Medical | DX: N39.0 Urinary tract infection, site not specified (principal) | CPT/HCPCS: 87086 ==

== ENCOUNTER 2020-09-19 08:00 | Outpatient (CLI) | payer MEDICARE, OTHER | END 2020-09-19 23:59 | disposition home or self-care (01) | LOC: LAB.R 08:00 | PROVIDERS: ATTEND Physician Assistant Medical | DX: R30.0 Dysuria (principal) | CPT/HCPCS: 87086 ==

== ENCOUNTER 2020-09-26 08:00 | Outpatient (CLI) | payer MEDICARE, OTHER ==
[2020-09-26 11:41] LABS: BASOPHILS % (AUTO) 0.9 %; EOSINOPHILS # (AUTO) 0.1 10^3/uL (0.0-0.7); EOSINOPHILS % (AUTO) 2.8 %; HCT - HEMATOCRIT 40.4 % (37.0-47.0); HGB - HEMOGLOBIN 12.9 g/dL (12.0-16.0); LYMPHOCYTES # (AUTO) 1.1 10^3/uL (1.5-3.5); LYMPHOCYTES % (AUTO) 25.2 %; MEAN CORPUSCULAR HEMOGLOBIN 29.1 pg (27.0-31.0); MEAN CORPUSCULAR HGB CONC 31.9 g/dL (32.0-36.0); MEAN PLATELET VOLUME 10.2 fL (7.9-10.8); MONOCYTES # (AUTO) 0.4 10^3/uL (0.0-1.0); MONOCYTES % (AUTO) 8.9 %; NEUTROPHILS # (AUTO) 2.7 10^3/uL (1.5-6.6); NEUTROPHILS % (AUTO) 62.2 %; PLT - PLATELET COUNT 258 10^3/uL (130-450); RED BLOOD COUNT 4.44 10^6/uL (4.20-5.40); WHITE BLOOD COUNT 4.4 x10^3/uL (4.8-10.8)
[2020-09-26 12:30] LABS: ALBUMIN 4.2 g/dL (3.2-5.5); ALBUMIN/GLOBULIN RATIO 1.6 (1.0-2.2); ALKALINE PHOSPHATASE 86 IU/L (42-121); ALT ALANINE AMINOTRANSFERASE 13 IU/L (10-60); AST ASPARTATE AMINOTRANSFERASE 17 IU/L (10-42); BILIRUBIN,TOTAL 0.8 mg/dL (0.2-1.0); BUN - BLOOD UREA NITROGEN 18 mg/dL (6-20); CALCIUM 10.4 mg/dL (8.5-10.3); CARBON DIOXIDE - CO2 27 mmol/L (21-32); CHLORIDE 103 mmol/L (101-111); CHOL/HDL RATIO 3.4 (<4.4); CHOLESTEROL 264 mg/dL; CREATININE 0.7 mg/dL (0.4-1.0); GFR - MDRD 79 (>89); GLUCOSE 87 mg/dL (70-100); HDL CHOLESTEROL 77 mg/dL; LDL CHOLESTEROL,CALCULATED 173 mg/dL; LDL/HDL RATIO 2.2 (<4.4); SODIUM 140 mmol/L (135-145); TOTAL PROTEIN 6.9 g/dL (6.7-8.2); TRIGLYCERIDES 71 mg/dL; VLDL CHOLESTEROL 14 mg/dL
[2020-09-26 12:31] LABS: THYROID STIMULATING HORMONE 2.81 uIU/mL (0.34-5.60)
== END 2020-09-26 23:59 | disposition home or self-care (01) ==
LOC: LAB.WCP 08:00
PROVIDERS: ATTEND Physician Assistant Medical
DX: I48.91 Unspecified atrial fibrillation (principal); R30.0 Dysuria; G40.A09 Absence epileptic syndrome, not intractable, without status epilepticus; J30.9 Allergic rhinitis, unspecified
CPT/HCPCS: 36415; 80053; 80061; 80177; 83721; 84443; 85025; 87086